=== PATIENT | male | born 1985 | race Two or more races ===

== ENCOUNTER 2021-03-16 13:38 | Emergency (ER) | payer SELFPAY ==
[~2021-03-16] VITALS: Ht 165.1 cm; Wt 93.0 kg
--- NOTE | 2021-03-16 13:38 | NUR ---
BIB SELF C/O PAINFUL URINATION STARTED TUESDAY. PT IS AAOX4, NOT IN RESPIRATORY DISTRESS, V/S STABLE, KEPT RESTED AND COMFORTABLE. WILL CONTINUE TO MONITOR.
--- NOTE | 2021-03-16 14:10 | NUR ---
SEEN AND EXAMINED BY .
--- NOTE | 2021-03-16 14:15 | NUR ---
PT IV LINE ESTABLISHED BLOOD DRAWN AND SENT TO LAB.
[2021-03-16 14:32] LABS: BASOPHILS % (AUTO) 0.2 % (0.0-2.0); EOSINOPHILS % (AUTO) 0.7 % (0.0-6.0); HEMATOCRIT 43 % (39-51); HEMOGLOBIN 14.4 g/dL (13.5-17.5); LYMPHOCYTES # (AUTO) 1.6 K/uL (0.8-4.8); MEAN CORPUSCULAR HGB CONC 33 g/dl (31.0-36.0); MEAN CORPUSCULAR VOLUME 91 fL (80-96); MONOCYTES % (AUTO) 10.5 % (2.0-12.0); NEUTROPHILS # (AUTO) 6.9 K/uL (1.8-8.9); NEUTROPHILS % (AUTO) 71.6 % (43.0-81.0); PLATELET COUNT (AUTO) 268 K/uL (150-450); RED BLOOD CELL COUNT(AUTO) 4.74 MIL/uL (4.5-6.0); WHITE BLOOD COUNT (AUTO) 9.6 K/uL (4.3-11.0)
--- NOTE | 2021-03-16 14:40 | NUR ---
RESEARCH GROUP DIRECTOR AT BEDSIDE FOR ULTRASOUND.
--- NOTE | 2021-03-16 15:03 | NUR ---
URINE SPECIMEN COLLECTED AND SENT TO LAB.
[2021-03-16 15:06] LABS: ALBUMIN 3.7 g/dL (3.4-5.0); BILIRUBIN,DIRECT 0.2 mg/dL (0.0-0.2); CALCIUM, SERUM 8.6 mg/dL (8.5-10.1); TOTAL PROTEIN, SERUM 7.7 g/dL (6.4-8.2)
--- NOTE | 2021-03-16 15:15 | NUR ---
ABLE TO COLLECT 1700ML OF URINE OUTPUT. DR.PHAM DON.
[2021-03-16 15:33] LABS: BILIRUBIN,URINE NEGATIVE (NEGATIVE); COLOR,URINE YELLOW (YELLOW); LEUKOCYTE ESTERASE ,URINE NEGATIVE (NEGATIVE); NITRITE, URINE NEGATIVE (NEGATIVE); PROTEIN,URINE NEGATIVE (NEGATIVE); UGLUCOSE NEGATIVE (NEGATIVE); UROBILINOGEN,URINE 0.2 EU/dL (0.2)
[2021-03-16] MEDS ORDERED: TAMS-12 PO (16:14)
--- NOTE | 2021-03-16 16:35 | NUR ---
PER PT WILL BE PROVIDED WITH LEG BAG.
--- NOTE | 2021-03-16 16:45 | NUR ---
IV removed. Catheter intact and site benign. Pressure and 4x4 applied to site. No bleeding noted. Patient discharged to home in stable condition. Written and verbal after care instructions given. Patient verbalizes understanding of instruction.
[2021-03-16 16:46] VITALS: BP 120/81
== END 2021-03-16 16:46 | disposition home or self-care (01) ==
LOC: ER 13:38
DX: R33.9 Retention of urine, unspecified (principal); Z79.899 Other long term (current) drug therapy
CPT/HCPCS: 36415; 76705-TC; 80048-TC; 80076-TC; 85025-TC

== ENCOUNTER 2021-03-22 22:37 | Emergency (ER) | payer SELFPAY ==
[~2021-03-22] VITALS: Ht 165.1 cm; Wt 93.0 kg
[2021-03-22 22:37] VITALS: BP 110/72
[~2021-03-22 22:37] MED LIST: TAMS-12 PO
== END 2021-03-22 23:03 | disposition home or self-care (01) ==
LOC: ER 22:42
DX: Z46.6 Encounter for fitting and adjustment of urinary device (principal)